=== PATIENT | male | born 1970 | race Caucasian/White ===

== ENCOUNTER 2024-01-29 09:31 | Day surgery (SDC) | payer OTHER ==
[2024-01-25 10:40] VITALS: BMI 26.6
[2024-01-29] MEDS ORDERED: LIDOCAINE 1% (10MG/ML) FOR IV START INTRADERMA PRN (09:56)
[2024-01-29 10:01] VITALS: TEMP 97.6
[2024-01-29] MEDS: IV FLUID CONTINUATION 1,000 ML IV ONE (10:05)
[2024-01-29] MEDS: LACTATED RINGERS 1,000 ML IV SCH (10:16)
[2024-01-29] MEDS ORDERED: PROPOFOL 10 MG/ML 20 ML VIAL IV ONE (10:19)
--- NOTE | 2024-01-29 10:25 | P.GSHP ---
History of Present Illness H&P Date: 01/29/24 Chief Complaint: Colon cancer screening 53-year-old male here for colonoscopy. No bowel complaints. No family history of colon cancer. Never had a colonoscopy before. Past Medical History Past Medical History: No Reported History History of Any Multi-Drug Resistant Organisms: None Reported Past Surgical History: Tonsillectomy Past Anesthesia/Blood Transfusion Reactions: No Reported Reaction Additional Past Anesthesia/Blood Transfusion Reaction / Comment(s): no blood transfusion Smoking Status: Never smoker - Past Family History Mother Family Medical History: Cancer Additional Family Medical History / Comment(s): breast Medications and Allergies Home Medications Medication Instructions Recorded Confirmed Type No Known Home Medications 01/25/24 01/29/24 History Allergies Allergy/AdvReac Type Severity Reaction Status Date / Time No Known Allergies Allergy Verified 01/29/24 09:57 Surgical - Exam Vital Signs Temp Pulse Resp BP Pulse Ox 97.6 F 76 14 109/64 97 01/29/24 09:59 01/29/24 09:59 01/29/24 09:59 01/29/24 09:59 01/29/24 09:59 Physical exam: General: Well-developed, well-nourished HEENT: Normocephalic, sclerae nonicteric Abdomen: Nontender, nondistended Extremities: No edema Neuro: Alert and oriented Assessment and Plan (1) Colon cancer screening Narrative/Plan: Will proceed with colonoscopy at this time. Current Visit: Yes Status: Acute Code(s): Z12.11 - ENCOUNTER FOR SCREENING FOR MALIGNANT NEOPLASM OF COLON SNOMED Code(s): 693866074
--- NOTE | 2024-01-29 10:35 | P.PCN ---
Date of Procedure: 01/29/24 Procedure(s) Performed: PREOPERATIVE DIAGNOSIS: Colon cancer screening POSTOPERATIVE DIAGNOSIS: Normal exam PROCEDURE: Colonoscopy ANESTHESIA: MAC SURGEON: Sergey Aldridge M.D. SPECIMENS: None ENDOSCOPIC PROCEDURE: The patient was placed on the endoscopy table in the left decubitus position. The Olympus colonoscope was inserted into the anus and passed under direct visualization to the base of the cecum. The appendiceal orifice was visualized. From that point the scope was slowly withdrawn inspecti ng all surfaces carefully. There were no neoplastic inflammatory or polypoid lesions throughout the cecum, ascending, transverse, descending, sigmoid and rectum. There was no visible diverticulosis noted. Digital rectal examination was normal. The patient was taken to the recovery room in stable condition per anesthesia guidelines. RECOMMENDATIONS: Resume diet. Repeat colonoscopy 10 years.
[2024-01-29 10:53] VITALS: PULSE 75
[2024-01-29 11:05] VITALS: BP 106/72; RESP 16
== END 2024-01-29 11:16 | disposition home or self-care (01) ==
LOC: ORWHC2ENDO 09:31
PROVIDERS: ATTEND Surgery
DX: Z12.11 Encounter for screening for malignant neoplasm of colon (principal); Z90.89 Acquired absence of other organs
CPT/HCPCS: 45378; J2704